=== PATIENT | female | born 1990 | race Caucasian/White ===

== ENCOUNTER 2019-11-14 15:22 | Outpatient (CLI) | payer MEDICARE, MEDICAID, SELFPAY ==
--- NOTE | 2019-11-14 | US_ITS ---
WS: [id number] PELVIC ULTRASOUND REASON FOR VISIT: MENORRHAGIA TECHNIQUE: Grayscale and Doppler transabdominal ultrasound of the pelvis. FINDINGS: No free fluid in the abdomen. Uterus measures 7.02 cm x 5.39 cm x 3.98 cm, right ovary measures 2.39 cm x 2.08 cm x 1.73 cm, and le ft ovary measures 1.74 cm x 2.4 cm x 1.48. cm. The endometrium is markedly thickened 14.23 mm. No cystic changes are seen. US/US pelvic complete* [id number] IMPRESSION: Markedly thickened endometrium.
== END 2019-11-14 15:23 | disposition home or self-care (01) ==
PROVIDERS: Family Provider Family Medicine; PCP Family Medicine; Visit Provider Family Medicine
DX: Z76.89 Persons encountering health services in other specified circumstances (principal)

== ENCOUNTER → 2020-01-18 14:45 | Outpatient (BNVA) | payer MEDICARE, MEDICAID, SELFPAY | PROVIDERS: Family Provider Family Medicine; PCP Family Medicine; Visit Provider Obstetrics & Gynecology | DX: R93.89 Abnormal findings on diagnostic imaging of other specified body structures (principal) | CPT/HCPCS: 76830 ==

== ENCOUNTER → 2020-01-29 10:15 | Outpatient (BNVA) | payer MEDICARE, MEDICAID, SELFPAY | PROVIDERS: Family Provider Family Medicine; PCP Family Medicine; Visit Provider Obstetrics & Gynecology | DX: N93.9 Abnormal uterine and vaginal bleeding, unspecified (principal); R93.89 Abnormal findings on diagnostic imaging of other specified body structures; Z09 Encounter for follow-up examination after completed treatment for conditions other than malignant neoplasm; Z12.4 Encounter for screening for malignant neoplasm of cervix | CPT/HCPCS: 88175 ==